=== PATIENT | female | born 1990 | race Caucasian/White ===

== ENCOUNTER 2023-03-22 20:53 | Emergency (ER) | payer BC ==
[~2023-03-22] VITALS: Ht 170.2 cm; Wt 56.7 kg
--- NOTE | 2023-03-22 21:10 | NUR ---
Patient in room 4A sittting up on ay[address] A/Jose3, interacting with and staff memeber with no distress noted.
[2023-03-22] MEDS ORDERED: KEPPRA (21:17)
[2023-03-22] MEDS ORDERED: levETIRAcetam IV 1,000 MG in IV DEXTROSE 5% 100 ML IV ONE (21:30)
[2023-03-22] MEDS ORDERED: levETIRAcetam 500 MG/5 ML VIAL IV ONE (21:39)
[2023-03-22 21:44] LABS: HEMATOCRIT 39.6 % (31.2-41.9); MEAN CORPUSCULAR VOLUME 100.5 fL (75.5-95.3); PLATELET COUNT (AUTO) 234 K/uL (179-408)
[2023-03-22] MEDS ORDERED: LAMO200T10 PO (21:48)
[2023-03-22] MEDS ORDERED: PERA4TAB PO (21:48)
[2023-03-22] MEDS ORDERED: ZONI100C42 PO (21:48)
[2023-03-22] MEDS ORDERED: LEVE500T20 PO (21:48)
[2023-03-22 21:51] LABS: CARBON DIOXIDE 24 mmol/L (21-32); CHLORIDE 105 mmol/L (98-107); POTASSIUM 3.5 mmol/L (3.5-5.1)
[2023-03-22 21:52] LABS: CREATININE 0.9 mg/dL (0.6-1.3); UREA NITROGEN, BLOOD 16 mg/dL (7-18)
[2023-03-22 21:57] LABS: ALANINE AMINOTRANSFERASE 13 U/L (14-59); ALKALINE PHOSPHATASE 88 U/L (50-136); ASPARTATE AMINOTRANSFERASE 8 U/L (15-37); BILIRUBIN,DIRECT < 0.1 mg/dL (0.0-0.2); BILIRUBIN,TOTAL 0.3 mg/dL (0.2-1.0); TOTAL PROTEIN, SERUM 7.6 g/dL (6.4-8.2)
--- NOTE | 2023-03-22 22:00 | NUR ---
Patient able to ambulated to restroom with steady gait with jenny assist.
[2023-03-22 22:31] LABS: *BILIRUBIN,URIN NEGATIVE (NEGATIVE); *BLOOD, URINE 1+ (NEGATIVE); *COLOR,URINE YELLOW (YELLOW); *KETONES,URINE TRACE (NEGATIVE); *UROBILINOGEN,URINE 0.2 E.U./dl (NORMAL); LEUKOCYTE ESTERASE ,URINE 1+ (NEGATIVE); NITRITE, URINE NEGATIVE (NEGATIVE); UGLUCOSE NEGATIVE (NEGATIVE)
[2023-03-22 22:35] LABS: *CLARITY,URINE HAZY (CLEAR)
[2023-03-22 22:46] LABS: *AMPHETAMINE, URINE NEGATIVE (NEGATIVE); *CANNABINOID, URINE NEGATIVE (NEGATIVE); *COCCAINE, URINE NEGATIVE (NEGATIVE); *PHENCYCLIDINE SCREEN,URINE NEGATIVE (NEGATIVE)
[2023-03-22] MEDS ORDERED: NITROFURANTOIN/NITROFURAN MAC 100 MG CAPSULE PO ONE ×2 (23:28→23:30)
[2023-03-22] MEDS ORDERED: NITR100C11 PO (23:36)
--- NOTE | 2023-03-22 23:42 | NUR ---
IV removed. Catheter intact and site benign. Pressure and 4x4 gauze applied to site. No bleeding noted.
[2023-03-22 23:43] LABS: BACTERIA,URINE FEW /HPF (NONE SEEN); SQUAMOUS EPITHELIAL CELL,UR MANY /HPF (NONE SEEN)
--- NOTE | 2023-03-22 23:50 | NUR ---
Patient discharged to home in stable condition with taking patient home. Written and verbal after care instructions given. Patient verbalizes understanding of instructions. Stressed follow up or return to ER for worsening s/s.
[2023-03-22 23:54] VITALS: BP 122/75; TEMP 98.2; O2SAT 100
== END 2023-03-22 23:54 | disposition home or self-care (01) ==
LOC: ER 20:56
DX: R56.9 Unspecified convulsions (principal); N39.0 Urinary tract infection, site not specified; R10.2 Pelvic and perineal pain; Z79.899 Other long term (current) drug therapy
CPT/HCPCS: 80076; 80048; 81001; 85025; 84702; 36415; 93005; 99284; 96365; 80320; 80307; J1953; A4663; G0480